=== PATIENT | male | born 1945 | race African-American/Black ===

== ENCOUNTER 2016-11-24 19:01 | Emergency (ER) | payer MEDICARE, MEDICAID ==
[~2016-11-24] VITALS: Ht 167.6 cm; Wt 113.0 kg
[2016-11-24] MEDS ORDERED: TETANUS, DIPHTHERIA, PERTUSSIS VAC/PF 0.5ML (>7YR OLD) IM ONE (21:15)
[2016-11-24] MEDS ORDERED: LIDOCAINE HCL/EPINEPHRINE 1%-EPI 1:100,000 30 ML VIAL INFIL ONE (21:30)
[2016-11-24 23:31] VITALS: BP 146/78
== END 2016-11-24 23:33 | disposition home or self-care (01) ==
LOC: ER 21:46
DX: S51.811A Laceration without foreign body of right forearm, initial encounter (principal); S21.211A Laceration without foreign body of right back wall of thorax without penetration into thoracic cavity, initial encounter; I10 Essential (primary) hypertension; W45.8XXA Other foreign body or object entering through skin, initial encounter; W25.XXXA Contact with sharp glass, initial encounter; Y93.89 Activity, other specified; Y92.89 Other specified places as the place of occurrence of the external cause; Y99.8 Other external cause status
CPT/HCPCS: 12005; 90471; 90715; 99283; Z7610

== ENCOUNTER 2016-11-26 12:21 | Emergency (ER) | payer MEDICARE, MEDICAID ==
[~2016-11-26] VITALS: Ht 162.6 cm; Wt 116.0 kg
[2016-11-26 14:12] VITALS: BP 145/71
[2016-11-26] MEDS ORDERED: TRAM50TA3 PO (14:12)
[2016-11-26] MEDS ORDERED: BACITRACIN ZINC OINT UDPKT TOP ONE (18:15)
== END 2016-11-26 18:47 | disposition home or self-care (01) ==
LOC: ER 14:12
DX: Z48.00 Encounter for change or removal of nonsurgical wound dressing (principal); I10 Essential (primary) hypertension; J45.909 Unspecified asthma, uncomplicated
CPT/HCPCS: 99282

== ENCOUNTER 2018-11-14 11:20 | Day surgery (SDC) | payer MEDICARE, MEDICAID ==
[~2018-11-14] VITALS: Ht 170.2 cm; Wt 115.2 kg
[~2018-11-14 11:20] MED LIST: TRAM50TA3 PO
[2018-11-14] MEDS ORDERED: LIDOCAINE HCL 1% 20ML VIAL (Pyxis) INJ ONE (12:36)
[2018-11-14] MEDS ORDERED: IODIXANOL 320MG/ML 100 ML BOTTLE IV ONE (12:36)
[2018-11-14] MEDS ORDERED: MIDAZOLAM HCL 2 MG/2 ML VIAL ONE (12:42)
[2018-11-14] MEDS ORDERED: FENTANYL CITRATE/PF 50MCG/ML 2ML VIAL ONE (12:42)
[2018-11-14] MEDS ORDERED: CHOL200010 PO (13:04)
[2018-11-14] MEDS ORDERED: SIMV20TA6 PO (13:04)
[2018-11-14] MEDS ORDERED: ASPI-1160 PO (13:04)
[2018-11-14] MEDS ORDERED: AMLO10TA80 PO (13:04)
[2018-11-14] MEDS ORDERED: HYDR25TA PO (13:04)
[2018-11-14] MEDS ORDERED: HEPARIN SODIUM 1,000 UNIT/1ML VIAL IV ONE (14:37)
[2018-11-14] MEDS ORDERED: NICARDIPINE 100MCG/ML 10ML VIAL (CATH LAB) IV ONE (14:41)
[2018-11-14] MEDS ORDERED: NITROGLYCERIN 50MCG/ML 10ML VIAL (CATH LAB) IV ONE (14:41)
== END 2018-11-14 18:20 | disposition home or self-care (01) ==
LOC: CCL 11:20
PROVIDERS: ATTEND Specialist
DX: I25.10 Atherosclerotic heart disease of native coronary artery without angina pectoris (principal); I25.82 Chronic total occlusion of coronary artery; I10 Essential (primary) hypertension; E78.5 Hyperlipidemia, unspecified
CPT/HCPCS: 82962; 93458; 99152; 99153; C1769; C1887; C1893; J1644; J2250; J3010; J3490; Q9967; G0500